=== PATIENT | female | born 1975 | race Caucasian/White ===

== ENCOUNTER 2024-10-21 13:21 | Observation (INO) | payer OTHER, SELFPAY ==
--- NOTE | ~2024-10-21 | XR_ITS ---
EXAMINATION: XR chest 1V portable 10/21/2024 15:02 INDICATION: Epigastric pain TECHNIQUE:A single portable AP upright frontal image of the chest was obtained. COMPARISON: None available FINDINGS: Heart is mildly enlarged. No pneumothorax. No pleural effusion. No free air under the diaphragm. Small airspace opacities scattered IMPRESSION: 1: Small airspace opacities scattered throughout both lungs. Differential includes but is not limited to edema or pneumonia. If symptoms persist or worsen, consider a short-term follow-up study or additional imaging for further assessment. Reviewed, dictated and finalized at location Q. IMPRESSION: 1: Small airspace opacities scattered throughout both lungs. Differential incl udes but is not limited to edema or pneumonia. If symptoms persist or worsen, consider a short-term follow-up study or additio nal imaging for further assessment.
[2024-10-21 13:34] VITALS: BP 124/91; PULSE 67; RESP 18; TEMP 36.6; O2SAT 99
--- NOTE | 2024-10-21 14:52 | ED.GENADULT ---
HPI - General Adult General Chief complaint: Unspecified Stated complaint: I think I have a food impaction, hx of EOE Time Seen by Provider: 10/21/24 14:20 History of Present Illness HPI narrative: 49-year-old female presented to the emergency department for evaluation for difficulty swallowing since Friday. Patient reports she does have a history of EOE and does follow-up with Andrzej. Patient does not feel she will be able to get in to see her physician. States Friday she was having a burger and did not notice any difficulty swallowing during dinner but woke up at about 2:00 a.m. on Friday morning and has had difficulty and pain with swallowing since then. Patient reports she is able to handle her own secretions but does report pain with swallowing. Related Data Home Medications ?Medication ?Instructions ?Recorded ?Confirmed ?Last Taken ?Type cyclobenzaprine 10 mg tablet 10 mg PO Q8H PRN muscle spasm 10/21/24 10/21/24 10/20/24 History Allergies Allergy/AdvReac Type Severity Reaction Status Date / Time codeine AdvReac Intermediate Nausea and Verified 10/21/24 13:23 Vomiting hydrocodone (From Vicodin) AdvReac Intermediate Nausea and Verified 10/21/24 13:23 Vomiting tetracycline AdvReac Intermediate Headache Verified 10/21/24 13:23 Review of Systems Review of Systems: All systems reviewed & are unremarkable except as noted in HPI and below PMFSH Social History Social History Smoking status: Never smoker Alcohol intake: current Drinks per week: 8 Substance use: never Lack of Transportation: No Lack of Food: Never True Current Housing: I Have Housing Concerned About Future Housing: No Difficulty Paying Gas/Electric Bills: No Difficulty Paying for Meds: No Currently Unemployed: No Education: Bachelor's Degree Difficulty w/ Childcare or Family Care: No Spiritual care concerns: No Exam Narrative: APPEARANCE: Well appearing, no pain, no distress, well-nourished. HEAD: normocephalic, atraumatic. EYES: PERRLA/EOMI, conjunctivae clear. NOSE: Normal no drainage EARS:TMS clear with good light reflex. THROAT: Pharynx clear, no exudate. NECK: Supple. No adenopathy, no masses. RESPIRATORY: Airway patent, respirations nonlabored. Clear to auscultation bilaterally, no rales, rhonchi, wheezing. CARDIOVASCULAR: Regular rate and rhythm without murmurs rubs or gallops. ABDOMINAL: Soft, nontender, nondistended, normal bowel sounds MUSCULOSKELETAL: Moves all extremities. Strength/ROM intact, No edema, No calf tenderness. NEURO: Alert. Cranial nerves II through XII intact. Good gait. Good coordination SKIN: Warm, dry. Normal Color Course Vital Signs Vital signs: Vital Signs Temperature 97.8 F 10/21/24 13:34 Pulse Rate 67 10/21/24 13:34 Respiratory Rate 18 10/21/24 13:34 Blood Pressure 124/91 H 10/21/24 13:34 Pulse Oximetry 99 10/21/24 13:34 Oxygen Delivery Room Air 10/21/24 13:34 Temperature 97.8 F 10/21/24 13:34 Pulse Rate 65 10/21/24 15:46 Respiratory Rate 15 10/21/24 15:46 Blood Pressure 118/80 10/21/24 15:46 Pulse Oximetry 99 10/21/24 15:46 Oxygen Delivery Room Air 10/21/24 13:34 Medical Decision Making [facility] Narrative Medical decision making narrative: 49-year-old female presents emergency department for evaluation for painful swallowing since Friday. I discussed case with GI and they are willing to scope her tomorrow she does not feel comfortable waiting to see her physician as outpatient. This was discussed with the patient and she does prefer to stay rather than to be discharged home with outpatient follow-up. Was started on a clear liquid diet will be made NPO after midnight. Differential Diagnosis Differential Diagnosis: Eosinophilic esophagitis, esophageal spasm, esophageal stricture, food impaction Vital Signs Vital Signs: Vital Signs Temperature 97.8 F 10/21/24 13:34 Pulse Rate 67 10/21/24 13:34 Respiratory Rate 18 10/21/24 13:34 Blood Pressure 124/91 H 10/21/24 13:34 Pulse Oximetry 99 10/21/24 13:34 Oxygen Delivery Room Air 10/21/24 13:34 Temperature 97.8 F 10/21/24 13:34 Pulse Rate 65 10/21/24 15:46 Respiratory Rate 15 10/21/24 15:46 Blood Pressure 118/80 10/21/24 15:46 Pulse Oximetry 99 10/21/24 15:46 Oxygen Delivery Room Air 10/21/24 13:34 Lab Data Lab results reviewed: Yes I reviewed the patient's lab results. 10/21/24 15:12 10/21/24 15:12 Labs: Lab Results 10/21/24 Range/Units 15:12 WBC 7.1 (4.5-10.0) K/mm3 RBC 3.72 L (4.2-5.4) M/mm3 Hgb 12.0 (12.0-15.0) g/dL Hct 36.4 L (37.0-47.0) % MCV 97.8 (80-100) fl MCH 32.3 (26-34) pg MCHC 33.0 (32-36) g/dl RDW 12.6 (11.5-14.5) % Plt Count 233 (150-375) k/mm3 MPV 10.4 (7.4-10.4) fl Immature Gran % (Auto) 0.3 (0-0.5) % Neut % (Auto) 58.4 (45.5-73.1) % Lymph % (Auto) 29.7 (18.3-44.2) % [place] % (Auto) 6.9 (2.6-8.5) % Eos % (Auto) 4.1 (0-4.4) % Baso % (Auto) 0.6 (0.2-1.2) % Lymph # (Auto) 2.10 (0.9-3.2) K/mm3 [place] # (Auto) 0.5 (0.1-0.6) K/mm3 Eos # (Auto) 0.3 (0-0.3) K/mm3 Baso # (Auto) 0.0 (0.0-0.1) K/mm3 Abs Immat Gran (auto) 0.02 (0.00-0.031) K/mm3 Absolute Neuts (auto) 4.1 (1.3-6.7) K/mm3 Absolute Nucleated RBC 0.000 (0.0-0.012) K/mm3 Nucleated RBC % 0.0 (0.0-0.2) % PT 13.0 (11.1-14.7) Seconds INR 1.0 APTT 31.6 (22.3-36.8) Seconds Sodium 133 L (137-145) mmol/L Potassium 4.2 (3.4-5.0) mmol/L Chloride 101 (98-107) mmol/L Carbon Dioxide 27 (22-30) mmol/L Anion Gap 5 (4-12) mmol/L BUN 8 (7-17) mg/dL Creatinine 0.75 (0.7-1.0) mg/dL Estim Creat Clear Calc Not Reportable Estimated GFR > 60 (59 - ) Glucose 86 (65-110) mg/dL Calcium 8.9 (8.4-10.2) mg/dL Total Bilirubin 0.6 (0.2-1.3) mg/dL AST 31 (14-36) U/L ALT 18 (6-35) U/L Alkaline Phosphatase 62 (38-126) U/L NT-Pro-B Natriuret Pep 68 (19.9-100) pg/mL Total Protein 7.7 (6.3-8.2) g/dL Albumin 4.2 (3.5-5.1) g/dL Imaging Data Radiologist's impression: Impressions Chest X-Ray 10/21/24 15:05 IMPRESSION: 1: Small airspace opacities scattered throughout both lungs. Differential includes but is not limited to edema or pneumonia. If symptoms persist or worsen, consider a short-term follow-up study or additional imaging for further assessment. Discharge Plan Discharge Clinical Impression: Esophageal stricture, Dysphagia Patient Disposition: Still a Patient Condition: Stable
[2024-10-21 15:20] LABS: Hematocrit 36.4 % (37.0-47.0); Hemoglobin 12.0 g/dL (12.0-15.0); Immature Granulocyte Percent A 0.3 % (0-0.5); Lymphocytes Absolute Auto 2.10 K/mm3 (0.9-3.2); Mean Corpuscular HGB Conc 33.0 g/dl (32-36); Mean Corpuscular Hemoglobin 32.3 pg (26-34); Mean Corpuscular Volume 97.8 fl (80-100); Nucleated Red Blood Cells Absolute Auto 0.000 K/mm3 (0.0-0.012); Nucleated Red Blood Cells Perc 0.0 % (0.0-0.2); Platelet Count Result 233 k/mm3 (150-375); Red Blood Count 3.72 M/mm3 (4.2-5.4); White Blood Count 7.1 K/mm3 (4.5-10.0)
[2024-10-21 15:30] LABS: Alanine Aminotransferase 18 U/L (6-35); Albumin Level 4.2 g/dL (3.5-5.1); Alkaline Phosphatase 62 U/L (38-126); Anion Gap 5 mmol/L (4-12); Aspartate Amino Transferase 31 U/L (14-36); Bilirubin,Total 0.6 mg/dL (0.2-1.3); Blood Urea Nitrogen 8 mg/dL (7-17); Calcium 8.9 mg/dL (8.4-10.2); Carbon Dioxide 27 mmol/L (22-30); Chloride 101 mmol/L (98-107); Estimated Glomerular Filt Rate > 60; Glucose 86 mg/dL (65-110); Potassium 4.2 mmol/L (3.4-5.0); Sodium 133 mmol/L (137-145); Total Protein 7.7 g/dL (6.3-8.2)
[2024-10-21 15:44] VITALS: RESP 17
[2024-10-21 15:44] LABS: INR 1.0; Prothrombin Time 13.0 Seconds (11.1-14.7)
[2024-10-21 15:45] LABS: Partial Thromboplastin Time 31.6 Seconds (22.3-36.8)
[2024-10-21 15:46] VITALS: BP 118/80; PULSE 65; RESP 15; O2SAT 99
[2024-10-21 16:14] VITALS: BMI 24.2
--- NOTE | 2024-10-21 16:15 | ADMGEN ---
This patient, Lori Brown, was admitted to 3 [facility] Surg Room 319-01. Patient/family oriented to hospital policies and general routines including ID bracelet, bed and alarms, visiting hours, pain management, procedures, bathroom and other care routines, personal items, smoking policy, room service/diet, and visiting hours. Information on how to activate the Rapid Response Team has been discussed. Patient/Family are encouraged to report perceived risks to care and to ask questions if they do not understand what they are told or what they should do.
--- NOTE | 2024-10-21 16:18 | P.HP_ITS ---
H&P: HPI History of Present Illness Date/Time: 10/21/24 16:18 Chief Complaint: Food impaction Narrative: 49-year-old female with history of esophagus esophagus presents to the hospital for possible food impaction. She states that she has had difficulty swallowing since Friday she states that she is unable to get into her physician at [place]. Patient states that she is able to protect her airway and swallow her secretions. She does report pain with swallowing. Patient states that she has had esophageal strictures and had several EGDs. She states that she has never had food stuck before. She states that she is still able to swallow liquids. And would like to try to swallow her pills. Denies nausea or vomiting. Lab work in ED is essentially unremarkable. Chest x-ray shows scattered opacities throughout both lungs edema versus pneumonia. GI consulted for EGD in a.m.. Review of Systems Review of Systems: 12 systems were reviewed and are negativ e except for as per HPI. PMFSH Social History Social History Smoking status: Never smoker Alcohol intake: current Drinks per week: 8 Substance use: never Lack of Transportation: No Lack of Food: Never True Current Housing: I Have Housing Concerned About Future Housing: No Difficulty Paying Gas/Electric Bills: No Difficulty Paying for Meds: No Currently Unemployed: No Education: Bachelor's Degree Difficulty w/ Childcare or Family Care: No Spiritual care concerns: No Meds Home Medications and Allergies Home Medications ?Medication ?Instructions ?Recorded ?Confirmed ?Type cyclobenzaprine 10 mg tablet 10 mg PO Q8H PRN muscle s pasm 10/21/24 10/21/24 History Allergies Allergy/AdvReac Type Severity Reaction Status Date / Time codeine AdvReac Intermediate Nausea and Verified 10/21/24 13:23 Vomiting hydrocodone (From Vicodin) AdvReac Intermediate Nausea and Verified 10/21/24 13:23 Vomiting tetracycline AdvReac Intermediate Headache Verified 10/21/24 13:23 Vital Signs Vital Signs - 24 hr 10/21/24 13:34 10/21/24 15:44 10/21/24 15:46 Temperature 97.8 F Pulse Rate 67 65 Respiratory Rate 18 17 15 Blood Pressure 124/91 H 118/80 Pulse Oximetry 99 99 Oxygen Delivery Room Air Exam Narrative: General: well appearing, appears stated age. HEENT: normocephalic, atraumatic. Mucous membranes moist. EOMI, PERRLA, bilateral sclera anicteric, no conjunctival injection. Neck supple without JVD, lymphadenopathy, or bruit. Respiratory: clear to ascultation bilaterally. No rales/rhonic/wheezes. Cardiovascular: Regular rate and rhythm, normal S1-S2 upon ascultation. No murmurs, rubs, or clicks. PMI is nondisplaced, capillary refill less than 3 s econd. Abdomen: Soft, round, no pulsatile masses, nondistended and nontender. No rebound, no guarding. No CVA tenderness, no hepatosplenomegaly. Bowel sounds present to all four quadrants. No high pitch or tinkling sounds, resonant to percussion. Extremities: No cyanosis, clubbing, or edema present. Pulses are palpable 2/2. Active ROM to all four extremities. Neuro: Alert and orientated x 4. PERRLA. Cranial nerves 2-12 intact without focal deficit. Skin: Warm, dry, and intact, without rash, erythema, or lesion. Psych: pleasant, cooperative, normal speech, normal affect, no hallucinations, no dysarthia H&P: Results Labs Labs: Short CBC 10/21/24 Range/Units 15:12 WBC 7.1 (4.5-10.0) K/mm3 Hgb 12.0 (12.0-15.0) g/dL Hct 36.4 L (37.0-47.0) % Plt Count 233 (150-375) k/mm3 BMP 10/21/24 15:12 Sodium 133 L Potassium 4.2 Chloride 101 Carbon Dioxide 27 BUN 8 Creatinine 0.75 Glucose 86 Calcium 8.9 Liver Function 10/21/24 Range/Units 15:12 Total Bilirubin 0.6 (0.2-1.3) mg/dL AST 31 (14-36) U/L ALT 18 (6-35) U/L Alkaline Phosphatase 62 (38-126) U/L Albumin 4.2 (3.5-5.1) g/dL Assessment and Plan Assessment and plan (1) Esophageal stricture: Code(s): K22.2 - Esophageal obstruction Status: Acute Assessment and Plan: GI consulted Plan for EGD in the morning NPO midnight Okay for clear liquids if tolerates (2) Abnormal chest x-ray: Code(s): R93.89 - Abnormal findings on diagnostic imaging of other specified body structures Status: Acute Assessment and Plan: Pneumonia versus edema Patient has no respiratory symptoms (3) Hypothyroidism: Code(s): E03.9 - Hypothyroidism, unspecified Status: Acute Assessment and Plan: Continue home Synthroid Quality VTE Prophylaxis VTE prophylaxis: mechanical ordered Hospitalist MIPS Advance Care Plan I have confirmed that the patient's Advanced Care Plan is present, code status is documented, or surrogate decision maker is listed in patient medical record.: Yes Medication Reconciliation I have utilized all available resources to obtain, update and review the patients current medications (includes all prescriptions, OTC, herbals, cannabis, and nutritional supplements).: Yes
[2024-10-21 17:17] LABS: NT Pro B Type Natriuretic Pept 68 pg/mL (19.9-100)
[2024-10-21 22:00] VITALS: BP 109/88; PULSE 74; RESP 20; TEMP 36.3; O2SAT 97
[2024-10-21] MEDS: LACTATED RINGERS 1,000 ML 125 ML IV CONT (23:45)
[2024-10-22 06:00] VITALS: BP 104/70; PULSE 65; RESP 16; TEMP 36.2; O2SAT 97
[2024-10-22] MEDS: LEVOTHYROXINE SODIUM 100 MCG TABLET PO (06:15)
[2024-10-22 06:20] LABS: Hematocrit 36.6 % (37.0-47.0); Hemoglobin 12.1 g/dL (12.0-15.0); Immature Granulocyte Percent A 0.3 % (0-0.5); Lymphocytes Absolute Auto 1.80 K/mm3 (0.9-3.2); Mean Corpuscular HGB Conc 33.1 g/dl (32-36); Mean Corpuscular Hemoglobin 32.2 pg (26-34); Mean Corpuscular Volume 97.3 fl (80-100); Nucleated Red Blood Cells Absolute Auto 0.000 K/mm3 (0.0-0.012); Nucleated Red Blood Cells Perc 0.0 % (0.0-0.2); Platelet Count Result 227 k/mm3 (150-375); Red Blood Count 3.76 M/mm3 (4.2-5.4); White Blood Count 7.1 K/mm3 (4.5-10.0)
[2024-10-22 06:59] LABS: Anion Gap 7 mmol/L (4-12); Blood Urea Nitrogen 9 mg/dL (7-17); Calcium 8.9 mg/dL (8.4-10.2); Carbon Dioxide 24 mmol/L (22-30); Chloride 102 mmol/L (98-107); Estimated CRCL calculation 73 ml/min; Estimated Glomerular Filt Rate > 60; Glucose 69 mg/dL (65-110); Potassium 4.0 mmol/L (3.4-5.0); Sodium 133 mmol/L (137-145)
[2024-10-22] MEDS: LACTATED RINGERS 1,000 ML 125 ML IV CONT (07:54)
[2024-10-22] MEDS: PANTOPRAZOLE SODIUM IV 40 MG VIAL IV PUSH (08:00)
--- NOTE | 2024-10-22 08:23 | P.PNIM_ITS ---
Progress Note: A&P Assessment and Plan (1) Abnormal chest x-ray: Code(s): R93.89 - Abnormal findings on diagnostic imaging of other specified body structures Status: Acute (2) Hypothyroidism: Code(s): E03.9 - Hypothyroidism, unspecified Status: Acute Plan 1. Odynophagia History of esophagitis stricture, history of EGD GI consulted, plan for EGD this morning NPO 2. Abnormal chest x-ray Chest x-ray shows vascular congestion versus pneumonia Patient does not have any respiratory distress or fever or chest pain Hold antibiotics at this time 3. Hypothyroidism Continue Synthroid Subjective Date/time seen: 10/22/24 08:23 Interval history: Will discharge patient after EGD. Exam Narrative: APPEARANCE: No acute distress EYES: EOMI HEENT: Normocephalic, atraumatic, OMM RESPIRATORY: No respiratory distress Clear to auscultation bilaterally with no rhonchi wheezing or rales. CARDIOVASCULAR: RRR, S1 and S2 without murmurs rubs or gallops. ABDOMINAL: Soft, nontender, nondistended, no rebound or guarding MSK: 5/5 motor strength throughout lower extremity NEURO: Awake and alert. Following commands, speech normal, no focal deficits SKIN:: Warm, dry. No rashes lesions or abrasions PSYCHIATRIC: Normal affect/mood, Objective Data Vital Signs Vital Signs: Vital Signs - 24 hr 10/21/24 13:34 10/21/24 15:44 10/21/24 15:46 Temperature 36.6 C Pulse Rate 67 65 Respiratory Rate 18 17 15 Blood Pressure 124/91 H 118/80 Pulse Oximetry 99 99 Oxygen Delivery Room Air 10/21/24 20:00 10/21/24 22:00 10/22/24 06:00 Temperature 36.3 C L 36.2 C L Pulse Rate 74 65 Respiratory Rate 20 16 Blood Pressure 109/88 104/70 Pulse Oximetry 97 97 Oxygen Delivery Room Air Intake/Output Intake/Output: Intake & Output 10/19/24 10/20/24 10/21/24 10/22/24 23:59 23:59 23:59 23:59 Intake Total 910 1035 Balance 910 1035 Meds/Results Medications: Active Medications Generic Name Dose Route Start Last Admin Trade Name Freq PRN Reason Stop Dose Admin Lactated Ringer's 1,000 mls @ 125 mls/hr 10/21/24 15:25 10/22/24 07:54 Lr - Lactated Ringers Iv IV CONT 125 mls/hr .Q8H NANDO Administration Ketorolac Tromethamine 15 mg 10/21/24 16:41 Ketorolac 15 Mg/Ml Vial (*Bkc) IV PUSH Q6H PRN Pain Rated 4-6 Levothyroxine Sodium 100 mcg 10/22/24 06:30 10/22/24 06:15 Levothyroxine Sodium 100 Mcg Tablet PO 100 mcg DAILY@0630 NANDO Administration Pantoprazole Sodium 40 mg 10/22/24 09:00 10/22/24 08:00 Pantoprazole Sodium Iv 40 Mg Vial IV PUSH 40 mg QAM NANDO Administration Spironolactone 50 mg 10/22/24 12:00 Spironolactone 50 Mg Tablet PO Q12H [facility] Radiology Results: ITS Impressions Chest X-Ray 10/21/24 15:05 IMPRESSION: 1: Small airspace opacities scattered throughout both lungs. Differential includes but is not limited to edema or pneumonia. If symptoms persist or worsen, consider a short-term follow-up study or additional imaging for further assessment. Labs Labs: Laboratory Results - last 24 hr 10/21/24 10/22/24 15:12 05:48 WBC 7.1 7.1 RBC 3.72 L 3.76 L Hgb 12.0 12.1 Hct 36.4 L 36.6 L MCV 97.8 97.3 MCH 32.3 32.2 MCHC 33.0 33.1 RDW 12.6 12.4 Plt Count 233 227 MPV 10.4 10.9 H Immature Gran % (Auto) 0.3 0.3 Neut % (Auto) 58.4 60.1 Lymph % (Auto) 29.7 25.4 [place] % (Auto) 6.9 8.0 Eos % (Auto) 4.1 5.6 H Baso % (Auto) 0.6 0.6 Lymph # (Auto) 2.10 1.80 [place] # (Auto) 0.5 0.6 Eos # (Auto) 0.3 0.4 H Baso # (Auto) 0.0 0.0 Abs Immat Gran (auto) 0.02 0.02 Absolute Neuts (auto) 4.1 4.3 Absolute Nucleated RBC 0.000 0.000 Nucleated RBC % 0.0 0.0 PT 13.0 INR 1.0 APTT 31.6 Sodium 133 L 133 L Potassium 4.2 4.0 Chloride 101 102 Carbon Dioxide 27 24 Anion Gap 5 7 BUN 8 9 Creatinine 0.75 0.69 L Estim Creat Clear Calc Not Reportable 73 Estimated GFR > 60 > 60 Glucose 86 69 Calcium 8.9 8.9 Total Bilirubin 0.6 AST 31 ALT 18 Alkaline Phosphatase 62 NT-Pro-B Natriuret Pep 68 Total Protein 7.7 Albumin 4.2 Quality VTE Prophylaxis VTE prophylaxis: mechanical ordered
[2024-10-22 09:53] VITALS: BP 113/72; PULSE 81; RESP 18; TEMP 36.5; O2SAT 97
[2024-10-22] MEDS: LACTATED RINGERS 1,000 ML 150 ML IV CONT (09:58)
--- NOTE | 2024-10-22 09:59 | WPDANESEPPF ---
Anes - Initial Pre Proc Eval Procedure: Operation Date: 10/22/24 15:00 Proposed Procedures p Esophagogastroduodenoscopy - Taras Martinez MD Date/Time: 10/22/24 09:59 Surgeon: Teo Keene MD Pre Op Diagnosis: Esophageal Spasm/Esophageal Stricture Patient Data Age: 49 Gender: F Height: 1.63 m Weight: 64 kg Last Vital Signs Temp 36.5 C 10/22/24 09:53 Pulse 81 10/22/24 09:53 Resp 18 10/22/24 09:53 BP 113/72 10/22/24 09:53 Pulse Ox 97 10/22/24 09:53 O2 Del Method Room Air 10/22/24 09:53 Allergies Allergy/AdvReac Type Severity Reaction Status Date / Time codeine AdvReac Intermediate Nausea and Verified 10/22/24 09:51 Vomiting hydrocodone (From Vicodin) AdvReac Intermediate Nausea and Verified 10/22/24 09:51 Vomiting tetracycline AdvReac Intermediate Headache Verified 10/22/24 09:51 Home Medications ?Medication ?Instructions ?Recorded ?Confirmed ?Type cyclobenzaprine 10 mg tablet 10 mg PO Q8H PRN muscle spasm 10/21/24 10/21/24 History progesterone micronized 100 mg 100 mg PO QPM 10/21/24 10/21/24 History capsule spironolactone 50 mg tablet 50 mg PO Q12H 10/21/24 10/21/24 History Laboratory Tests 10/21/24 10/22/24 15:12 05:48 WBC 7.1 K/mm3 7.1 K/mm3 (4.5-10.0) (4.5-10.0) RBC 3.72 L M/mm3 3.76 L M/mm3 (4.2-5.4) (4.2-5.4) Hgb 12.0 g/dL 12.1 g/dL (12.0-15.0) (12.0-15.0) Hct 36.4 L % 36.6 L % (37.0-47.0) (37.0-47.0) MCV 97.8 fl 97.3 fl (80-100) (80-100) MCH 32.3 pg 32.2 pg (26-34) (26-34) MCHC 33.0 g/dl 33.1 g/dl (32-36) (32-36) RDW 12.6 % 12.4 % (11.5-14.5) (11.5-14.5) Plt Count 233 k/mm3 227 k/mm3 (150-375) (150-375) MPV 10.4 fl 10.9 H fl (7.4-10.4) (7.4-10.4) Immature Gran % (Auto) 0.3 % 0.3 % (0-0.5) (0-0.5) Neut % (Auto) 58.4 % 60.1 % (45.5-73.1) (45.5-73.1) Lymph % (Auto) 29.7 % 25.4 % (18.3-44.2) (18.3-44.2) [place] % (Auto) 6.9 % 8.0 % (2.6-8.5) (2.6-8.5) Eos % (Auto) 4.1 % 5.6 H % (0-4.4) (0-4.4) Baso % (Auto) 0.6 % 0.6 % (0.2-1.2) (0.2-1.2) Lymph # (Auto) 2.10 K/mm3 1.80 K/mm3 (0.9-3.2) (0.9-3.2) [place] # (Auto) 0.5 K/mm3 0.6 K/mm3 (0.1-0.6) (0.1-0.6) Eos # (Auto) 0.3 K/mm3 0.4 H K/mm3 (0-0.3) (0-0.3) Baso # (Auto) 0.0 K/mm3 0.0 K/mm3 (0.0-0.1) (0.0-0.1) Abs Immat Gran (auto) 0.02 K/mm3 0.02 K/mm3 (0.00-0.031) (0.00-0.031) Absolute Neuts (auto) 4.1 K/mm3 4.3 K/mm3 (1.3-6.7) (1.3-6.7) Absolute Nucleated RBC 0.000 K/mm3 0.000 K/mm3 (0.0-0.012) (0.0-0.012) Nucleated RBC % 0.0 % 0.0 % (0.0-0.2) (0.0-0.2) PT 13.0 Seconds (11.1-14.7) INR 1.0 APTT 31.6 Seconds (22.3-36.8) Sodium 133 L mmol/L 133 L mmol/L (137-145) (137-145) Potassium 4.2 mmol/L 4.0 mmol/L (3.4-5.0) (3.4-5.0) Chloride 101 mmol/L 102 mmol/L (98-107) (98-107) Carbon Dioxide 27 mmol/L 24 mmol/L (22-30) (22-30) Anion Gap 5 mmol/L 7 mmol/L (4-12) (4-12) BUN 8 mg/dL 9 mg/dL (7-17) (7-17) Creatinine 0.75 mg/dL 0.69 L mg/dL (0.7-1.0) (0.7-1.0) Estim Creat Clear Calc Not Reportable 73 ml/min Estimated GFR > 60 > 60 (59 - ) (59 - ) Glucose 86 mg/dL 69 mg/dL (65-110) (65-110) Calcium 8.9 mg/dL 8.9 mg/dL (8.4-10.2) (8.4-10.2) Total Bilirubin 0.6 mg/dL (0.2-1.3) AST 31 U/L (14-36) ALT 18 U/L (6-35) Alkaline Phosphatase 62 U/L (38-126) NT-Pro-B Natriuret Pep 68 pg/mL (19.9-100) Total Protein 7.7 g/dL (6.3-8.2) Albumin 4.2 g/dL (3.5-5.1) Progesterone Pending Patient hx anesthesia problems: none Family hx anesthesia problems: none Results Review: All pre-operative results and documents have been reviewed as part of the pre-operative evaluation. [facility] Past Medical History Medical History (Updated 10/22/24 @ 10:03 by Durga Moctezuma DO) Graves disease Hypothyroidism Social History Social History Smoking status: Never smoker Alcohol intake: current Drinks per week: 8 Substance use: never Lack of Transportation: No Lack of Food: Never True Current Housing: I Have Housing Concerned About Future Housing: No Difficulty Paying Gas/Electric Bills: No Difficulty Paying for Meds: No Currently Unemployed: No Education: Bachelor's Degree Difficulty w/ Childcare or Family Care: No Spiritual care concerns: No Anes - Eval Final PreProcedure Day of Procedure 10/22/24 09:59 Patient weight: normal Heart: regular rate and rhythm Lungs: clear to auscultation and normal air movement Airway: Mallampati scale class II Neurological: alert and oriented Last oral intake: >/= 8 hours ASA classification: II Emergent: no Anesthetic plan: proceed Anesthesia type and monitoring: general GIVS and standard monitoring Results Review: All pre-operative results and documents have been reviewed as part of the pre-operative evaluation. Informed Consent: The patient's anesthetic plan and its attendant risks and benefits were discussed with the patient/family/POA. Questions were solicited and answers provided to the satisfaction of the patient/family/POA.
--- NOTE | 2024-10-22 10:09 | WPDGICN ---
Assessment and Plan Assessment and plan (1) Dysphagia: Code(s): R13.10 - Dysphagia, unspecified Status: Acute Assessment and Plan: will assess with egd today (2) Eosinophilic esophagitis: Code(s): K20.0 - Eosinophilic esophagitis Status: Acute Assessment and Plan: she is already scheduled to see her GI doctor in 3 weeks currently only elimination diet but she is still having issues, she tried ppi previously probably she will need either eohilia or dupixent- to be discussed with her provider GI Consult Note Consult date/time: 10/22/24 10:09 Reason for consult: dysphagia HPI: Lori Brown is a 49 year old female with known history of EoE, she is seeing GI at [facility], last egd about 2 years ago, she is only now on elimination diet (she thinks that dairy is causing most symptoms), Friday had dinner and since with sensation of discomfort in esophagus but she is still able to eat. She is here for EGD. Review of Systems Constitutional: Constitutional: Denies headache(s) and Denies weakness Eyes: Eyes: Denies blurry vision ENT: Reports Normal hearing present, Denies headache(s) and Denies neck pain Cardiovascular: Cardiovascular: Denies chest pain and Denies dyspnea Respiratory: Respiratory: Denies dyspnea Gastrointestinal: Gastrointestinal: Reports no additional gastrointestinal complaints Genitourinary: Genitourinary: Denies dysuria Musculoskeletal: Musculoskeletal: Denies neck pain Integumentary/Breasts: Skin/Breast: Denies dry skin Neurologic: Reports Normal hearing present, Denies headache(s) and Denies weakness Psychiatric: Psychiatric: Denies anxiety [facility] Past Medical History Medical History (Updated 10/22/24 @ 10:16 by Taras Martinez MD) Eosinophilic esophagitis Graves disease Hypothyroidism Social History Social History Smoking status: Never smoker Alcohol intake: current Drinks per week: 8 Substance use: never Lack of Transportation: No Lack of Food: Never True Current Housing: I Have Housing Concerned About Future Housing: No Difficulty Paying Gas/Electric Bills: No Difficulty Paying for Meds: No Currently Unemployed: No Education: Bachelor's Degree Difficulty w/ Childcare or Family Care: No Spiritual care concerns: No Meds Home Medications and Allergies Home Medications ?Medication ?Instructions ?Recorded ?Confirmed ?Type cyclobenzaprine 10 mg tablet 10 mg PO Q8H PRN muscle spasm 10/21/24 10/21/24 History progesterone micronized 100 mg 100 mg PO QPM 10/21/24 10/21/24 History capsule spironolactone 50 mg tablet 50 mg PO Q12H 10/21/24 10/21/24 History Allergies Allergy/AdvReac Type Severity Reaction Status Date / Time codeine AdvReac Intermediate Nausea and Verified 10/22/24 09:51 Vomiting hydrocodone (From Vicodin) AdvReac Intermediate Nausea and Verified 10/22/24 09:51 Vomiting tetracycline AdvReac Intermediate Headache Verified 10/22/24 09:51 Vital Signs Vital Signs - 24 hr 10/21/24 13:34 10/21/24 15:44 10/21/24 15:46 Temperature 97.8 F Pulse Rate 67 65 Respiratory Rate 18 17 15 Blood Pressure 124/91 H 118/80 Pulse Oximetry 99 99 Oxygen Delivery Room Air 10/21/24 20:00 10/21/24 22:00 10/22/24 06:00 Temperature 97.3 F L 97.2 F L Pulse Rate 74 65 Respiratory Rate 20 16 Blood Pressure 109/88 104/70 Pulse Oximetry 97 97 Oxygen Delivery Room Air 10/22/24 08:00 10/22/24 09:53 Temperature 97.7 F Pulse Rate 81 Respiratory Rate 18 Blood Pressure 113/72 Pulse Oximetry 97 Oxygen Delivery Room Air Room Air Exam Const: General: comfortable and no acute distress HENMT: Face/Nose/Sinus: Normal nares present Eyes: General: appearance normal, both eyes and all related structures Neck: Neck: no JVD Resp: Auscultation: clear to auscultation bilaterally Cardio: Rate: regular rate Rhythm: regular rhythm GI: Inspection: non-distended GI Palp: Yes Soft to palpation Skin: General skin exam: normal color Neuro: General: gait normal Speech: normal speech Extrem: General: normal to inspection Psych: Mental Status: mental status grossly normal Results Labs 10/22/24 05:48 10/22/24 05:48 Labs: Short CBC 10/21/24 10/22/24 Range/Units 15:12 05:48 WBC 7.1 7.1 (4.5-10.0) K/mm3 Hgb 12.0 12.1 (12.0-15.0) g/dL Hct 36.4 L 36.6 L (37.0-47.0) % Plt Count 233 227 (150-375) k/mm3 BMP 10/21/24 10/22/24 15:12 05:48 Sodium 133 L 133 L Potassium 4.2 4.0 Chloride 101 102 Carbon Dioxide 27 24 BUN 8 9 Creatinine 0.75 0.69 L Glucose 86 69 Calcium 8.9 8.9 Liver Function 10/21/24 Range/Units 15:12 Total Bilirubin 0.6 (0.2-1.3) mg/dL AST 31 (14-36) U/L ALT 18 (6-35) U/L Alkaline Phosphatase 62 (38-126) U/L Albumin 4.2 (3.5-5.1) g/dL
[2024-10-22 10:17] VITALS: BP 90/75; PULSE 94; RESP 24; O2SAT 95
--- NOTE | 2024-10-22 10:18 | S_PTH ---
PATIENT: Lori Brown LOC: [id number] U#:[id number] AGE/SX: 49/F ROOM: 319 RE10/21/[address]: Shira Delaney MD : 1975 BED: 01 DIS: 10/22/2024 SPEC #: [id number] RECD: 10/22/24 10:34 STATUS: TRACY RETeresa #: [id number] EM: 10/22/24 10:[address]: Taras Martinez DEPT: [facility] Surgical RECD BY: Pat Vicente ENTERED: 10/22/24 10:35 SP TYPE: Surgical OTHR DR: Teo Keene MD PHYSICIAN NOT ON STAFF Tissues: A - Gastric Biopsy B - Esophageal Biopsy C - Esophageal Biopsy Procedures: Pas with Diastase Grocotts Methenamine Stain Hematoxylin and Eosin Stain Gross and Microscopic Level 4
[2024-10-22 10:27] VITALS: BP 88/44; PULSE 70; RESP 22; O2SAT 100
[2024-10-22 10:37] VITALS: BP 95/51; PULSE 71; RESP 18; O2SAT 100
[2024-10-22] MEDS: SPIRONOLACTONE 50 MG TABLET PO (12:31)
--- NOTE | 2024-10-22 13:16 | P.DS_ITS ---
DS: Admitting Diagnosis Discharge Date 10/22/2024 Admitting Diagnosis Odynophagia secondary to eosinophilic esophagitis DS: Discharge Diagnosis Discharge Diagnosis (1) Eosinophilic esophagitis: Code(s): K20.0 - Eosinophilic esophagitis Status: Acute (2) Hypothyroidism: Code(s): E03.9 - Hypothyroidism, unspecified Status: Acute (3) Odynophagia: Code(s): R13.10 - Dysphagia, unspecified Status: Acute (4) Dysphagia: Code(s): R13.10 - Dysphagia, unspecified Status: Acute (5) Esophageal stricture: Code(s): K22.2 - Esophageal obstruction Status: Acute (6) Abnormal chest x-ray: Code(s): R93.89 - Abnormal findings on diagnostic imaging of other specified body structures Status: Acute Plan avoid any foods that triggers to eosinophilic esophagitis Follow with the GI and dietary service Take EOHILIA daily for 12 weeks EGD today shows esophagitis likely secondary to a flare eosinophilic esophagitis DS: Summary Hospital Course Hospital Course: Lori Brown is a 49-year-old female with past medical history of eosinophilic esophagitis, hypothyroidism who presented yesterday for odynophagia for a day. She thought she had food remaining start on the esophagus. She d enies nausea or vomiting or abdominal pain. X-ray in the ED shows small airspace opacity scattered throughout both lungs. Patient does not have any respiratory symptoms. She is in room air. She denies fever or chills or cough. GI consulted and she underwent EGD today which shows mild esophagitis with white exudate. Negative for stricture or any resistance scope was advanced. Eohilia was prescribed for 12 weeks. Medication side effects was discussed with the patient. Patient was discharged home in stable condition Status at Discharge Functional status at discharge: independent ambulation Time Spent with Patient Time attestation: Total time spent providing and/or coordinating discharge services: Time spent: Less than 30 minutes Exam Narrative: APPEARANCE: well-developed, not in acute distress EYES: EOMI HEENT: Normocephalic, atraumatic, OMM RESPIRATORY: No respiratory distress Clear to auscultation bilaterally with no rhonchi wheezing or rales. CARDIOVASCULAR: RRR, S1 and S2 without murmurs rubs or gallops. ABDOMINAL: Soft, nontender, nondistended, no rebound or guarding MUSCULOSKELETAl: 5/5 motor strength throughout all extremities NEURO: Awake and alert. Following commands, speech normal, no focal deficits SKIN:: Warm, dry. No rashes lesions or abrasions PSYCHIATRIC: Normal affect/mood, DS: Data Data Completed and Pending Pending studies at discharge: Pending at discharge 10/22/24 10:18 Surgical [PTH] Routine Labs on day of discharge: Labs from last 24 hours 10/22/24 10/21/24 05:48 15:12 WBC 7.1 7.1 RBC 3.76 L 3.72 L Hgb 12.1 12.0 Hct 36.6 L 36.4 L MCV 97.3 97.8 MCH 32.2 32.3 MCHC 33.1 33.0 RDW 12.4 12.6 Plt Count 227 233 MPV 10.9 H 10.4 Immature Gran % (Auto) 0.3 0.3 Neut % (Auto) 60.1 58.4 Lymph % (Auto) 25.4 29.7 [place] % (Auto) 8.0 6.9 Eos % (Auto) 5.6 H 4.1 Baso % (Auto) 0.6 0.6 Lymph # (Auto) 1.80 2.10 [place] # (Auto) 0.6 0.5 Eos # (Auto) 0.4 H 0.3 Baso # (Auto) 0.0 0.0 Abs Immat Gran (auto) 0.02 0.02 Absolute Neuts (auto) 4.3 4.1 Absolute Nucleated RBC 0.000 0.000 Nucleated RBC % 0.0 0.0 PT 13.0 INR 1.0 APTT 31.6 Sodium 133 L 133 L Potassium 4.0 4.2 Chloride 102 101 Carbon Dioxide 24 27 Anion Gap 7 5 BUN 9 8 Creatinine 0.69 L 0.75 Estim Creat Clear Calc 73 Not Reportable Estimated GFR > 60 > 60 Glucose 69 86 Calcium 8.9 8.9 Total Bilirubin 0.6 AST 31 ALT 18 Alkaline Phosphatase 62 NT-Pro-B Natriuret Pep 68 Total Protein 7.7 Albumin 4.2 Progesterone Pending Discharge Plan Discharge Attending physician on discharge: Rakesh Keene Consulting providers: Taras Martinez Discharging Clinician: Shira Delaney Anticipated Discharge Date/Time: 10/22/24 13:03 Patient Disposition: Home Activity: unlimited Diet: other - see discharge instructions Discharge Instructions: Helpful tips * Chew food thoroughly and eat slowly to help prevent food from getting stuck * avoid foods that have caused the problems in the past * Take Eohilia daily and have a discussion about this medication Patient Instructions: Antibiotic Form Patient Language: Croatian Stand Alone Forms: General Discharge Information Follow-up/Referrals: Taras Martinez MD [Physician, Gastroenterology] - 2 Weeks Discharge Medications: Continued cyclobenzaprine 10 mg tablet 10 mg PO Q8H PRN (Reason: muscle spasm) spironolactone 50 mg tablet 50 mg PO Q12H progesterone micronized 100 mg capsule 100 mg PO QPM Date of admission: 10/21/24 15:23 Primary Care Provider: PHYSICIAN NOT ON STAFF,NONSTAFF Admitting Provider: Rakesh Keene Attending physician on admission: Rakesh Keene Condition: Stable
== END 2024-10-22 13:30 | disposition home or self-care (01) ==
LOC: ANHED 15:17 → ANH3MEDSUR 17:01
PROVIDERS: Internal Medicine Gastroenterology; Nurse Practitioner Gerontology; Admitting Provider Internal Medicine; Emergency Provider Emergency Medicine; Visit Provider Student in an Organized Health Care Education/Training Program
PROC: 0DJ08ZZ Inspection of Upper Intestinal Tract, Via Natural or Artificial Opening Endoscopic (ICD-10-PCS; CPT 43239; principal; 2024-10-22 15:00)
DX: K20.0 Eosinophilic esophagitis (principal); K22.2 Esophageal obstruction; R93.89 Abnormal findings on diagnostic imaging of other specified body structures; R91.8 Other nonspecific abnormal finding of lung field; E03.9 Hypothyroidism, unspecified
CPT/HCPCS: 43239; 36415; 71045; 80048; 80053; 83880; 84144; 85025; 85610; 85730; 88305; 88312; 88313; 99285; A9270; G0378; J2470; J2704; J7120